=== PATIENT | female | born 1980 | race Caucasian/White ===

== ENCOUNTER 2024-10-19 13:35 | Emergency (ER) | payer OTHER, SELFPAY ==
[2024-10-19 13:37] VITALS: BP 127/84
[2024-10-19 14:08] LABS: COVID-19 Antigen Negative (Negative)
--- NOTE | 2024-10-19 15:18 | ED.GENMED ---
History of Present Illness
General
Chief Complaint: Cold/Flu/URI Symptoms
Time Seen by Provider: 10/19/24 14:21
History of Present Illness
History of Present Illness:
43-year-old female presents to the emergency department for evaluation of flulike symptoms beginning 3 days ago. She reports severe headache, body aches, and coughing. Headache became severe this morning. She tried [id number] Tylenol
ibuprofen without relief. On arrival she is lying in the exam bed moaning in pain. No vomiting or diarrhea
Review of Systems
Review of Systems
Allergies reviewed?: Yes
All Other Systems: ROS reviewed and negative except as documented in HPI and ROS
Phy Exam
Physical Exam
Physical Exam:
GEN: Well appearing, NAD, WDWN
HEENT: Oral mucosa moist, no scleral icterus, no nasal congestion
Cardiac: Regular rate and rhythm, no murmur
Lung: No respiratory distress, no tachypnea
MSK: No gross deformity or injuries
Skin: Good color, no pallor or jaundice, no rashes
Neuro: AO x3; CN II-XII grossly intact. BUE strength 5/5 in all beebe, sensation intact and symmetric. BLE strength 5/5 in all beebe, sensation intact and symmetric
Psych: Calm, cooperative
Course
Orders/Labs/Results
Orders:
Orders
10/19/24 13:42
COVID-19 Antigen Urgent
Source: Nasal Swab
Influenza A+B Rapid Molecular Urgent
[facility] Source: Nasal Swab
Specimen Description:
10/19/24 15:17
0.9% Sodium Chloride 1000 ml [Nss] 1,000 ml IV BOLUS
Ketorolac [Toradol] 15 mg IV NOW STA
Metoclopramide [Reglan] 10 mg IV NOW STA
10/19/24 15:30
Complete Blood Count/With Diff Urgent
Comprehensive Metabolic Panel Urgent
Ferritin Urgent
Comment: ADDON
Iron Urgent
Total Iron Binding Urgent
10/19/24 15:51
Add On- LAB Urgent
Tests Added?: iron, TIBC, ferritin
Abnormal Lab Results
10/19/24
15:30
WBC 3.5 L 10^3/uL
(4.8-10.8)
Hgb 8.3 L g/dL
(12.0-16.0)
Hct 28.2 L %
(37.0-47.0)
MCV 63.9 L fL
(81.0-99.0)
MCH 18.8 L pg
(27.0-31.0)
MCHC 29.4 L g/dL
(33.0-37.0)
RDW 17.5 H %
(11.5-14.5)
Absolute Lymphs (auto) 0.5 L 10^3/uL
(1.2-3.4)
Neutrophils % 76.5 H %
(42.2-75.2)
Lymphocytes % 13.6 L %
(20.5-51.1)
Carbon Dioxide 20 L mmol/L
(22-30)
Iron 28 L ug/dl
(37-170)
TIBC 501 H ug/dl
(265-497)
% Saturation 5 L %
(20-50)
ALT 37 H U/L
(0-35)
10/19/24 15:30
10/19/24 15:30
Vital Signs
Initial and Last Documented VS:
Initial Vital Signs
Temp Pulse Resp BP Pulse Ox
100.0 F 97 18 127/84 97
10/19/24 13:37 10/19/24 13:37 10/19/24 13:37 10/19/24 13:37 10/19/24 13:37
Last Documented Vital Signs
Temp Pulse Resp BP Pulse Ox
100.0 F 97 18 127/84 97
10/19/24 13:37 10/19/24 13:37 10/19/24 13:37 10/19/24 13:37 10/19/24 13:37
MDM/Problems Addressed
MDM/Problems Addressed:
Symptoms dramatically improved with supportive treatment and IV fluids. Labs show significant microcytic anemia likely iron deficiency. Will recommend initiation of OTC iron supplementation and PCP/WARNING ANALYST follow-up as the patient does have heavy
menstrual cycles, no evidence of active bleeding today
*Critical Care Note
Total Time (30-74mins, 75-104mins- exclusive of procedures): Not Applicable
ED Attending Note
-
Portions of this chart may have been created with voice recognition software.� Occasional wrong word or��sound alike� substitutions may have occurred due to the inherent limitations of voice recognition software.
Discharge Plan
Departure
Patient Disposition: Home (Routine Discharge)
Date of Disposition: 10/19/24
Time of Disposition: 16:39
Patient with high blood pressure during this ER visit?: No
Discharge Problem:
Influenza B, Iron deficiency anemia
Instructions: Anemia caused by low iron
Referrals:
NONE,* [Family Provider] -
Activity Restrictions/Additional Instructions:
Please start an over the counter iron supplement containing 325mg of ferrous sulfate
Follow up with your primary doctor within 1 week regarding your anemia
Interventions
Interventions:
*Risk Screen - Suicide Last Done: 10/19/24 13:39
*General Assessment Last Done: 10/19/24 13:39
*Neglect/Abuse Screening Last Done: 10/19/24 13:39
*ED COVID-19 Vaccine History Last Done: 10/19/24 13:39
Discharge Date and Time
Print Language: BELGIAN
[2024-10-19] MEDS: REGLAN 10 MG IV (15:31)
[2024-10-19] MEDS: NSS 1000 IV (15:31)
[2024-10-19] MEDS: TORADOL 15 MG IV (15:31)
[2024-10-19 15:48] LABS: % Basophils 0.3 % (0-2); % Eosinophils 0.3 % (0-6); % Immature Granulocytes 0.3 % (0-0.5); % Lymphocytes 13.6 % (20.5-51.1); % Neutrophils 76.5 % (42.2-75.2); Absolute Lymphocytes 0.5 10^3/uL (1.2-3.4); Absolute Monocytes 0.3 10^3/uL (0.1-0.6); Absolute Neutrophils 2.7 10^3/uL (1.4-6.5); Hematocrit 28.2 % (37.0-47.0); Hemoglobin 8.3 g/dL (12.0-16.0); Mean Corp Hgb Conc. 29.4 g/dL (33.0-37.0); Mean Corpuscular Hgb 18.8 pg (27.0-31.0); Mean Corpuscular Volume 63.9 fL (81.0-99.0); Mean Platelet Volume 9.3 fL (7.4-10.4); Nucleated Red Blood Cells % 0 %; Platelet Count 350 10^3/uL (130-400); Red Blood Cell Count 4.41 10^6/uL (4.20-5.40); Red Cell Dist. Width 17.5 % (11.5-14.5); White Blood Cell Count 3.5 10^3/uL (4.8-10.8)
[2024-10-19 16:01] LABS: ALT (SGPT) 37 U/L (0-35); AST (SGOT) 34 U/L (14-36); Albumin 4.5 g/dl (3.5-5.0); Alkaline Phosphatase 77 U/L (38-126); Blood Urea Nitrogen 9 mg/dl (7-17); Calcium 9.2 mg/dl (8.4-10.2); Carbon Dioxide 20 mmol/L (22-30); Chloride 102 mmol/L (98-107); Glucose 97 mg/dl (70-99); Potassium 4.6 mmol/L (3.5-5.1); Sodium 136 mmol/L (135-145); Total Bilirubin 0.5 mg/dl (0.2-1.3); Total Protein 7.4 g/dl (6.3-8.2); eGFR > 60.00
[2024-10-19 16:29] LABS: Iron 28 ug/dl (37-170)
[2024-10-19 16:39] LABS: Percent Saturation 5 % (20-50); Total Iron Binding Capacity 501 ug/dl (265-497)
[2024-10-19 17:00] VITALS: BP 115/80
[2024-10-19 20:13] LABS: Ferritin 5.1 ng/ml (6.24-137)
== END 2024-10-19 17:03 | disposition home or self-care (01) ==
LOC: EMR 13:35
PROVIDERS: Emergency Medicine; Physician Assistant; EMERGENCY PHYSICIAN Emergency Medicine
DX: J10.1 Influenza due to other identified influenza virus with other respiratory manifestations (principal); D50.9 Iron deficiency anemia, unspecified; R51.9 Headache, unspecified; Z11.52 Encounter for screening for COVID-19
CPT/HCPCS: 99284; 96374; 96375; 96361; 80053; 82728; 83540; 83550; 85025; 87502; 87811